=== PATIENT | female | born 1940 | race Caucasian/White ===

== ENCOUNTER 2017-10-11 01:21 | Emergency (ER) | payer MEDICAID ==
[~2017-10-11] VITALS: Ht 154.9 cm; Wt 63.5 kg
[2017-10-11 01:22] VITALS: BP_SYST 126
--- NOTE | 2017-10-11 01:22 | NUR ---
Patient to ER bed 6 to gown for evaluation. Side rails up. Report given to DADA BOSS.
--- NOTE | 2017-10-11 01:25 | NUR ---
Patient arrived to ED a/o x 4 with c/o N/V and generalized malaise x 2 days. Per patient, she recieved a flu shot 3 days ago, and has begun to feel sick in the days following. Patient has emesis on clothes. Reports becoming incontinent. Denies cough. Hx of seizures. Respirations even and unlabored. Afebrile. Son at bedside. Will continue to monitor.
[2017-10-11] MEDS ORDERED: ONDANSETRON HCL 4 MG/2 ML VIAL IVP ONE (01:45)
[2017-10-11] MEDS ORDERED: NS 500 ML IV ONE (01:45)
--- NOTE | 2017-10-11 01:45 | NUR ---
ER at bedside examining patient.
--- NOTE | 2017-10-11 02:12 | NUR ---
Medicated per MD orders. IVF infusing with no s/s of infiltration at this time.
--- NOTE | 2017-10-11 02:30 | NUR ---
Patient provided with blanket for patient comfort. Family remains at bedside, no additional needs expressed. Lab at bedside for blood work.
[2017-10-11 02:47] LABS: BASOPHILS # (AUTO) 0.1 K/uL (0.0-0.2); BASOPHILS % (AUTO) 0.5 % (0.0-2.0); EOSINOPHILS % (AUTO) 0.2 % (0.0-4.0); HEMATOCRIT 44.6 % (36-48); HEMOGLOBIN 14.4 g/dL (12.0-16.0); LYMPHOCYTES # (AUTO) 0.8 K/uL (1.0-5.5); LYMPHOCYTES % (AUTO) 7.5 % (20.5-51.5); MEAN CORPUSCULAR HEMOGLOBIN 29 pg (27-31); MEAN CORPUSCULAR HGB CONC 32 % (32-36); MEAN CORPUSCULAR VOLUME 90 fL (79.0-98.0); MONOCYTES # (AUTO) 0.4 K/uL (0.0-1.0); NEUTROPHILS # (AUTO) 9.1 K/uL (1.8-7.7); NEUTROPHILS % (AUTO) 87.8 % (40.0-70.0); PLATELET COUNT (AUTO) 175 K/uL (130-430); RED BLOOD CELL COUNT(AUTO) 4.95 MIL/uL (4.2-6.2); RED CELL DISTRIBUTION WIDTH 11.4 % (9.0-15.0); WHITE BLOOD COUNT (AUTO) 10.4 K/uL (4.8-10.8)
[2017-10-11 02:56] LABS: ANION GAP 10 (5-15); CALCIUM 9.3 mg/dL (8.4-11.0); CHLORIDE 106 mmol/L (98-107); CREATININE 0.79 mg/dL (0.55-1.30); GLUCOSE 178 mg/dL (70-99); SODIUM SERUM 142 mmol/L (136-145); UREA NITROGEN, BLOOD 20 mg/dL (8-21)
[2017-10-11 03:03] LABS: PROTHROMBIN TIME 10.2 SECS (9.5-12.5)
[2017-10-11 03:05] LABS: ALANINE AMINOTRANSFERASE 30 U/L (12-78); ALBUMIN 3.4 g/dL (3.4-4.8); ASPARTATE AMINOTRANSFERASE 22 U/L (10-37); LIPASE 99 U/L (73-393); TOTAL BILIRUBIN 0.3 mg/dL (0.0-1.0)
[2017-10-11 03:46] LABS: BILIRUBIN,URINE 2+ (NEGATIVE); CLARITY/URINE HAZY (CLEAR); COLOR,URINE YELLOW (YELLOW); GLUCOSE,URINE NEGATIVE (NEGATIVE); KETONES,URINE 1+ (NEGATIVE); LEUKOCYTE ESTERASE ,URINE TRACE (NEGATIVE); NITRITE, URINE POSITIVE (NEGATIVE); PH,URINE 5.5 (5.0-8.0); PROTEIN URINE 2+ (NEGATIVE); UROBILINOGEN,URINE 0.2 (0.2-1.0)
[2017-10-11 03:47] LABS: BLOOD, URINE TRACE (NEGATIVE)
--- NOTE | 2017-10-11 03:48 | NUR ---
ED MD Hannah at bedside reassessing patient.
[2017-10-11 04:30] VITALS: BP_SYST 113
--- NOTE | 2017-10-11 04:30 | NUR ---
Patient given written and verbal discharge instructions and verbalizes understanding. ER MD discussed with patient the results and treatment provided. Patient in stable condition. ID arm band removed. IV catheter removed intact and dressing applied, no active bleeding. Rx of Ciprofloxacin and zofran given. Patient educated on pain management and to follow up with PMD. Pain Scale 2/10 tolerable for patient. Opportunity for questions provided and answered.
[2017-10-11 04:33] LABS: BACTERIA,URINE FEW /HPF (None Seen); COARSE GRANULAR CASTS,URINE 0-10 /LPF (None Seen); FINE GRANULAR CASTS,URINE 0-10 /LPF (None Seen); HYALINE CASTS, URINE 0-10 /LPF (None Seen); MUCUS,URINE 1+ /LPF (None Seen); WAXY CASTS,URINE 0-10 /LPF (None Seen)
== END 2017-10-11 04:30 | disposition home or self-care (01) ==
LOC: SED 01:21
DX: K52.9 Noninfective gastroenteritis and colitis, unspecified (principal); N39.0 Urinary tract infection, site not specified
CPT/HCPCS: 36415; 80053; 81000; 83690; 83880; 84484; 85025; 85610; 85730; 86710; 87086; 93005; 96374; 99285; J2405; J7040